=== PATIENT | female | born 1960 | race African-American/Black ===

== ENCOUNTER → 2021-03-09 | Day surgery (SDC) | payer OTHER ==
[~2021-03-09] MED LIST: ATOR40TA59 PO; ESOM40CA PO; IV RINGERS,LACTATED 1000ML 1,000 ML IV SCH; LIDOCAINE 2% PF 5 ML VIAL. ONE; LOSA1TAB19 PO; PROPOFOL 10 MG/ML (20ML) VIAL. IV ONE; VENL37.5 PO
[2021-03-09 13:00] VITALS: BP 142/63
--- NOTE | 2021-03-13 18:09 | PATHOLOGY ---
[facility] Accession Number: [id number] . 01 Material submitted: . PART A: esophagus - DISTAL ESOPHAGUS BIOPSY. Modifiers: distal PART B: sigmoid colon - SIGMOID POLYP . 01 Clinical history: . GERD/SCREENING EGD/COLONOSCOPY RULE OUT TIDWELL'S POLYP . 02 Diagnosis: A. Esophageal biopsies, distal esophagus: - Reflux esophagitis. . B. Colon biopsies, sigmoid polyps: - Hyperplastic polyps. . (JPM:uzair; 03/13/2021) [facility] 03/13/2021 1552 Local . 02 Comment: Sections of the distal esophageal biopsy reveal several segments of hyperplastic squamous esophageal mucosa and a segment of esophagogastric mucosa showing moderate chronic inflammation. The findings are supportive of the diagnosis of reflux esophagitis. There is no evidence of Tidwell's change, dysplasia or malignancy. . Sections of the sigmoid colon biopsy reveal several hyperplastic polyps. There are no adenomatous changes or evidence of malignancy. . (JPM:uzair; 03/13/2021) . 02 Electronically signed: . Max Hurt MD, Pathologist NPI- [id number] . 01 Gross description: . A. Received in formalin labeled "Ravindermoore, Dinovester, distal esophagus biopsy" are multiple fragments of cartwright-brown soft tissue measuring in aggregate 1.4 x 0.8 x 0.2 cm. The specimen is submitted entirely in A1. . B. Received in formalin labeled "Hillmoore, Clevester sigmoid polyp" are multiple fragments of cartwright-brown soft tissue measuring in aggregate 0.9 x 0.4 x 0.2 cm. The specimen is submitted entirely in B1. ([facility]; 03/10/2021) GZA/GZA 03/10/2021 1228 Local . 02 Pathologist provided ICD-10: K21.00, K63.5 . 02 CPT . 993169, 426250 Specimen Comment: A courtesy copy of this report has been sent to [phone], [phone] Specimen Comment: [id number] Specimen Comment: Report sent to / Performed at: [address] [facility] [address], [place] [id number] MD Latrell Browne MD Phone: [phone] Performed at: 02 [facility] [address], [place] [id number] MD Max Hurt MD Phone: [phone]
== END | disposition home or self-care (01) ==
LOC: ENDOS 10:20
PROVIDERS: ATTEND Internal Medicine Gastroenterology
DX: Z12.11 Encounter for screening for malignant neoplasm of colon (principal); K31.7 Polyp of stomach and duodenum; K21.00 Gastro-esophageal reflux disease with esophagitis, without bleeding; K64.0 First degree hemorrhoids; K63.5 Polyp of colon; K57.30 Diverticulosis of large intestine without perforation or abscess without bleeding; R12 Heartburn; K31.89 Other diseases of stomach and duodenum; K63.89 Other specified diseases of intestine; I10 Essential (primary) hypertension; E78.00 Pure hypercholesterolemia, unspecified; F32.9 Major depressive disorder, single episode, unspecified; Z79.899 Other long term (current) drug therapy; Z72.89 Other problems related to lifestyle; Z98.890 Other specified postprocedural states; Z88.2 Allergy status to sulfonamides; Z20.822 Contact with and (suspected) exposure to COVID-19
CPT/HCPCS: 43239; 45380; 87426; 88305; J2704